=== PATIENT | male | born 1955 ===

== ENCOUNTER 2018-02-19 14:31 | Inpatient (IN) | payer OTHER ==
--- NOTE | 2018-02-19 15:52 | ED PDOC ---
HPI: General Adult Time Seen by Provider: 02/19/18 15:12 Chief Complaint (Nursing): Dizziness/Lightheaded Chief Complaint (Provider): Dizziness History Per: Patient History/Exam Limitations: no limitations Onset/Duration Of Symptoms: Hrs (x1) Current Symptoms Are (Timing): Still Present Additional Complaint(s): Davis Lee is a 62 year old male with a past medical history of diabetes, who is presenting to the ER with complains of vertiginous dizziness with associated nausea and mild headaches, onset one hour ago. Patient reports that dizziness is worsened when moving his head and bending over, and states he has had episodes of "feeling hot." Patient reports experiencing a similar episodes 2 days ago, that resolved spontaneously. He does not have a regular doctor, and his medications are not always taken accordingly. He denies any vomiting, focal weakness, blurry vision, numbness , or weakness. Patient offers no other medical complaints at this time. PMD: none provided Past Medical History Reviewed: Historical Data, Nursing Documentation, Vital Signs Vital Signs: Last Vital Signs Temp 97.7 F 02/19/18 14:55 Pulse 66 02/19/18 14:55 Resp 18 02/19/18 14:55 BP 134/79 02/19/18 14:55 Pulse Ox 99 02/19/18 16:06 - Medical History PMH: Diabetes - Surgical History Other surgeries: left hand surgery, ankle surgery - due to trauma - Family History Family History: States: Diabetes, Hypertension - Social History Current smoker - smoking cessation education provided: Yes Alcohol: None Drugs: Denies - Allergies Allergies/Adverse Reactions: Allergies Allergy/AdvReac Type Severity Reaction Status Date / Time No Known Allergies Allergy Verified 02/19/18 15:20 Review of Systems ROS Statement: Except As Marked, All Systems Reviewed And Found Negative Constitutional: Negative for: Weakness Eyes: Negative for: Vision Change ((-) blurry vision) Gastrointestinal: Positive for: Nausea. Negative for: Vomiting Neurological: Positive for: Headache (mild), Dizziness (vertiginous). Negative for: Weakness (focal), Numbness, Other Physical Exam - Reviewed Nursing Documentation Reviewed: Yes Vital Signs Reviewed: Yes - Physical Exam Appears: Positive for: Non-toxic, No Acute Distress Neurologic/Psych: Positive for: Alert, game room attendant II-XII (intact), Oriented (x3), Cerebellar Tests (normal), Gait (steady), Other ((-) slurred speech, (+) grazyna- hallpike manuver- induces subtle nystagmus ). Negative for: Motor/Sensory Deficits - Laboratory Results Result Diagrams: 02/19/18 16:01 02/19/18 16:01 - ECG O2 Sat by Pulse Oximetry: 99 (RA) Pulse Ox Interpretation: Normal Medical Decision Making Medical Decision Making: Time: 15:33 Imprssion: Vertiginous Dizziness Differentials (including but not limited to): BPPV, dehydration, electrolyte abnormalities, intercranial mass, VBI. stroke Initial Plan: --CT Head --EKG --Alcohol Serum --CMP --Lipase --Magnesium --Phosphorus --ED Urine Dipstick --CBC --Glucose, POC --Antivert 50 mg PO --Zofran Inj 4 mg IVP --Zofran ODT 4 mg PO Accession No. : [id number] Patient Name / ID : MELLISSA POOL / [id number] Exam Date : 02/19/2018 15:53:02 ( Approved ) Study Comment : Sex / Age : M / [id number] Creator : Jonah Aiken MD Dictator : Jonah Aiken MD Testing Director : Hot Header Operator : Jonah Aiken MD Approver2 : Report Date : 02/19/2018 16:17:18 My Comment : PROCEDURE: CT HEAD WITHOUT CONTRAST. HISTORY: vertiginous dizziness and headache COMPARISON: None available. TECHNIQUE: Axial computed tomography images were obtained through the head/brain without intravenous contrast. Radiation dose: Total exam DLP = 951.31 mGy-cm. This CT exam was performed using one or more of the following dose reduction techniques: Automated exposure control, adjustment of the mA and/or kV according to patient size, and/or use of iterative reconstruction technique. FINDINGS: HEMORRHAGE: No intracranial hemorrhage. BRAIN: A small chronic lacune is seen the right external capsule anteriorly with remaining white matter are grossly normal in intrinsic signal throughout. Good corticomedullary differentiation is appreciated in the midline brain and appears unremarkable. There is no suspicious extra-axial fluid collection identified. Posterior fossa contents appear unremarkable the brainstem. VENTRICLES: Unremarkable. No hydrocephalus. CALVARIUM: Unremarkable. PARANASAL SINUSES: Unremarkable as visualized. No significant inflammatory changes. MASTOID AIR CELLS: Unremarkable as visualized. No inflammatory changes. OTHER FINDINGS: None. IMPRESSION: Likely chronic lacune right external capsule anteriorly. No intracranial hemorrhage or mass-effect. Follow-up CT or MRI are available as clinically warranted. Scribe Attestation: Documented by Keesha Weston acting as a scribe for Marva Conley MD. Scribe Attestation: All medical record entries made by the Scribe were at my direction and personally dictated by me. I have reviewed the chart and agree that the record accurately reflects my personal performance of the history, physical exam, medical decision making, and the department course for this patient. I have also personally directed, reviewed, and agree with the discharge instructions and disposition. Disposition - Disposition Forms: [employer] (Bengali)
[2018-02-19 16:18] LABS: BASO # 0.1 K/uL (0.0-0.2); BASO % 0.6 % (0.0-2.0); EOS # 0.1 K/uL (0.0-0.7); EOS % 1.4 % (0.0-4.0); HEMOGLOBIN 13.7 g/dL (12.0-18.0); LYMPH # 2.8 K/uL (1.0-4.3); LYMPH % 28.1 % (20.0-40.0); MEAN CELL VOLUME 89.1 fl (80.0-94.0); MEAN CORPUSCULAR HEMOGLOBIN 29.6 pg (27.0-31.0); MEAN CORPUSCULAR HGB CONC 33.2 g/dL (33.0-37.0); MEAN PLATELET VOLUME 9.2 fl (7.2-11.7); MONO # 0.7 K/uL (0.0-0.8); MONO % 7.5 % (0.0-10.0); NEUT # 6.2 K/uL (1.8-7.0); NEUT % 62.4 % (50.0-75.0); NRBC % 0.2 % (0.0-0.0); RBC 4.61 Mil/uL (4.40-5.90); RED CELL DISTRIBUTION WIDTH 14.2 % (11.5-14.5); WHITE BLOOD COUNT 9.9 K/uL (4.8-10.8)
--- NOTE | 2018-02-19 16:19 | CT ---
PROCEDURE: CT HEAD WITHOUT CONTRAST. HISTORY: vertiginous dizziness and headache COMPARISON: None available. TECHNIQUE: Axial computed tomography images were obtained through the head/brain without intravenous contrast. Radiation dose: Total exam DLP = 951.31 mGy-cm. This CT exam was performed using one or more of the following dose reduction techniques: Automated exposure control, adjustment of the mA and/or kV according to patient size, and/or use of iterative reconstruction technique. FINDINGS: HEMORRHAGE: No intracranial hemorrhage. BRAIN: A small chronic lacune is seen the right external capsule anteriorly with remaining white matter are grossly normal in intrinsic signal throughout. Good corticomedullary differentiation is appreciated in the midline brain and appears unremarkable. There is no suspicious extra-axial fluid collection identified. Posterior fossa contents appear unremarkable the brainstem. VENTRICLES: Unremarkable. No hydrocephalus. CALVARIUM: Unremarkable. PARANASAL SINUSES: Unremarkable as visualized. No significant inflammatory changes. MASTOID AIR CELLS: Unremarkable as visualized. No inflammatory changes. OTHER FINDINGS: None. IMPRESSION: Likely chronic lacune right external capsule anteriorly. No intracranial hemorrhage or mass-effect. Follow-up CT or MRI are available as clinically warranted.
[2018-02-19 16:22] LABS: ALB/GLOB RATIO 1.1 (1.0-2.1); ALBUMIN 4.1 g/dL (3.5-5.0); ALT/SGPT 38 U/L (21-72); AST/SGOT 20 U/L (17-59); BLOOD UREA NITROGEN 21 mg/dl (9-20); CALCIUM 10.5 mg/dL (8.4-10.2); GFR AFRICAN-AMERICAN > 60; GFR NON-AFRICAN AMERICAN > 60; LIPASE 77 U/L (23-300)
[2018-02-19] MEDS ORDERED: Iodixanol 320 MG/ML 100 ML BOTTLE IV ONE (18:42)
[2018-02-19] MEDS ORDERED: Sodium Chloride 0.9% 100 ML ONE (18:42)
--- NOTE | 2018-02-19 19:22 | CP.PCM.HP ---
History of Present Illness - History of Present Illness History of Present Illness: 62 year old male presented to ED with complaints of dizziness and unsteady gait for past 2 days. Started with dizziness, then progressed to blurry vision. Unusual sensation of his right cheek- felt like someone was touching his face. This morning began with headache, severe, bitemporal with associated severe nausea without vomiting. Of note he also reports unsteady gait for past two days , no falls. No history of similar symptoms in the past. His symptoms are slightly improved after Zofran and Meclizine. He does not have PMD. His nephew is a doctor in [place], last blood work done there was in August 2017, only takes Metformin 750mg once a day. PMD: none PMH: NIDDM Medications: Metformin 750mg daily Allergies: NKDA Surgical Hx: left hand, right ankle Social Hx: Smoker: 3-4 cigarrettes /day, social etoh use-rare, no illicit drug use. Family Hx: Mother has DM, sister has DM, Father is -had DM Present on Admission - Present on Admission Any Indicators Present on Admission: No Review of Systems - Constitutional Constitutional: Headache (began today, bilateral, temporal). absent: Fever, Frequent Falls, Weight Loss, Weakness - EENT Eyes: Blurred Vision (last night), Requires Corrective Lenses. absent: Pain, Sees Flashes, Spots in Vision Ears: Decreased Hearing (right more than left), Disequilibrium, Dizziness. absent: Ear Discharge, Tinnitus Nose/Mouth/Throat: absent: Epistaxis, Nasal Congestion, Nasal Discharge, Mouth Pain, Sore Throat - Cardiovascular Cardiovascular: absent: Chest Pain, Chest Pain at Rest, Dyspnea, Leg Edema, Slow Heart Rate, Syncope - Respiratory Respiratory: Cough (a few days ago, now resolved). absent: Dyspnea, Wheezing, Chest Congestion, Excessive Mucous Production - Gastrointestinal Gastrointestinal: absent: Abdominal Pain, Bloating, Change in Bowel Habits, Dyspepsia, Heartburn, Nausea, Vomiting - Genitourinary Genitourinary: absent: Change in Urinary Stream, Dysuria, Nocturia, Urinary Urgency, Voiding Freq/Small Amts - Musculoskeletal Musculoskeletal: absent: Back Pain, Muscle Weakness, Myalgias - Integumentary Integumentary: absent: Unusual Bruising - Neurological Neurological: Disequilibrium, Dizziness Additional comments: 'sensation of right of face, on cheek like someone was touching his face - Endocrine Endocrine: Polydipsia. absent: Polyphagia, Polyuria - Hematologic/Lymphatic Hematologic: absent: Easy Bleeding, Easy Bruising Past Patient History - Past Medical History & Family History Past Medical History?: Yes Pertinent Family History: Mother: DM Father :DM, Sister: DM - Past Social History Smoking Status: Light Smoker < 10 Cigarettes Daily Occupation: works in maintenance Alcohol: None Drugs: Denies Home Situation {Lives}: Alone - ENDOCRINE/METABOLIC Hx Diabetes Mellitus Type 2: Yes - PSYCHIATRIC Hx Substance Use: No - SURGICAL HISTORY Hx Surgeries: Yes (left hand, right ankle) Meds Allergies/Adverse Reactions: Allergies Allergy/AdvReac Type Severity Reaction Status Date / Time No Known Allergies Allergy Verified 02/19/18 15:20 Physical Exam - Constitutional Appears: Non-toxic, No Acute Distress - Head Exam Head Exam: ATRAUMATIC, NORMAL INSPECTION, NORMOCEPHALIC - Eye Exam Eye Exam: EOMI, Normal appearance, PERRL Additional comments: small xanthomas bilaterally upper/lower eyelids - ENT Exam ENT Exam: Mucous Membranes Moist Results - Vital Signs Recent Vital Signs: Last Vital Signs Temp 97.7 F 02/19/18 14:55 Pulse 66 02/19/18 14:55 Resp 18 02/19/18 14:55 BP 134/79 02/19/18 14:55 Pulse Ox 99 02/19/18 16:41 - Labs Result Diagrams: 02/19/18 16:01 02/19/18 16:01 Labs: Laboratory Results - last 24 hr 02/19/18 02/19/18 02/19/18 15:24 16:01 16:01 WBC 9.9 RBC 4.61 Hgb 13.7 Hct 41.1 MCV 89.1 MCH 29.6 MCHC 33.2 RDW 14.2 Plt Count 219 MPV 9.2 Neut % (Auto) 62.4 Lymph % (Auto) 28.1 [place] % (Auto) 7.5 Eos % (Auto) 1.4 Baso % (Auto) 0.6 Neut # (Auto) 6.2 Lymph # (Auto) 2.8 [place] # (Auto) 0.7 Eos # (Auto) 0.1 Baso # (Auto) 0.1 Sodium 138 Potassium 4.3 Chloride 102 Carbon Dioxide 24 Anion Gap 16 BUN 21 H Creatinine 0.8 Est GFR ( Amer) > 60 Est GFR (Non-Af Amer) > 60 POC Glucose (mg/dL) 145 H Random Glucose 150 H Calcium 10.5 H Phosphorus 2.9 Magnesium 2.2 Total Bilirubin 0.5 AST 20 ALT 38 Alkaline Phosphatase 131 H Total Protein 7.7 Albumin 4.1 Globulin 3.6 Albumin/Globulin Ratio 1.1 Lipase 77 Alcohol, Quantitative < 10 - EKG Data EKG Interpreted by: Myself EKG shows normal: Sinus rhythm Rate: Normal - Imaging and Cardiology CT scan - head Status: Image reviewed by me, Report reviewed by me Additional comment: FINDINGS: HEMORRHAGE: No intracranial hemorrhage. BRAIN: A small chronic lacune is seen the right external capsule anteriorly with remaining white matter are grossly normal in intrinsic signal throughout. Good corticomedullary differentiation is appreciated in the midline brain and appears unremarkable. There is no suspicious extra-axial fluid collection identified. Posterior fossa contents appear unremarkable the brainstem. VENTRICLES: Unremarkable. No hydrocephalus. CALVARIUM: Unremarkable. PARANASAL SINUSES: Unremarkable as visualized. No significant inflammatory changes. MASTOID AIR CELLS: Unremarkable as visualized. No inflammatory changes. OTHER FINDINGS: None. IMPRESSION: Likely chronic lacune right external capsule anteriorly. No intracranial hemorrhage or mass-effect. Follow-up CT or MRI are available as clinically warranted. Assessment & Plan (1) Dizziness Assessment and Plan: 62 year old male with history of NIDDM admittes for dizziness, headache, unsteady gait of unknown etiology. Patient has been normotensive, accuchecks have been within acceptable limits, he does not appear to have any focal neurologic deficits at this time. However need to rule out stroke, TIA, vertibrobasilar insufficiency CT head revealed Likely chronic lacune right external capsule anteriorly. No intracranial hemorrhage or mass-effect. Neurology was consulted, CTA of head and neck was done, pending report. Vitamin B12, Folate, TSH, HGA1C, and lipid panel ordered for AM. Will monitor patient BP closely. Follow up neurology recommendations and pending CTA report Status: Acute (2) Non-insulin dependent type 2 diabetes mellitus Assessment and Plan: hga1c for AM, UA to assess for proteinuria accuchecks are within acceptable limits he is for CTA of head and neck, hold off on starting metformin for now. Status: Chronic (3) DVT prophylaxis Assessment and Plan: lovenox in AM Status: Acute
[2018-02-19 21:21] LABS: SQUAMOUS EPITHIAL < 1 /hpf (0-5); URINE BILIRUBIN NEGATIVE (NEGATIVE); URINE BLOOD NEGATIVE (NEGATIVE); URINE CLARITY CLEAR (Clear); URINE COLOR STRAW (YELLOW); URINE GLUCOSE (UA) NEG (Normal); URINE LEUKOCYTE ESTERASE NEG Leu/uL (Negative); URINE PROTEIN NEGATIVE (NEGATIVE); URINE UROBILINOGEN 0.2-1.0 mg/dL (0.2-1.0)
--- NOTE | 2018-02-19 21:34 | CT ---
EXAM: CT Angiography Head With Intravenous Contrast CT Angiography Neck With Intravenous Contrast EXAM DATE/TIME: 02/19/2018 6:20 PM CLINICAL HISTORY: 62 years old, male; Signs and symptoms; Vertigo and other: Dizziness; Additional info: Vertigo R/O vertebral basilar artery insufficiency TECHNIQUE: Axial computed tomographic angiography images of the head and neck with intravenous contrast using CT angiography protocol. All CT scans at this facility use one or more dose reduction techniques, viz.: automated exposure control; ma/kV adjustment per patient size (including targeted exams where dose is matched to indication; i.e. head); or iterative reconstruction technique. All CT scans at this facility use one or more dose reduction techniques, viz.: automated exposure control; ma/kV adjustment per patient size (including targeted exams where dose is matched to indication; i.e. head); or iterative reconstruction technique. MIP reconstructed images were created and reviewed. Coronal and sagittal reformatted images were created and reviewed. CONTRAST: 90 mL of [id number] administered intravenously. COMPARISON: Recent head CT, 2018-02-19 15:53 FINDINGS: LIMITATIONS: Mild streak/motion artifact. 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 No evidence of occlusion. RIGHT MIDDLE CEREBRAL ARTERY: No evidence of occlusion. No aneurysm visualized. RIGHT POSTERIOR CEREBRAL ARTERY: origin of the right posterior cerebral artery, a congenital variant. No evidence of occlusion. LEFT ANTERIOR CEREBRAL ARTERY: No evidence of occlusion. No aneurysm visualized. LEFT MIDDLE CEREBRAL ARTERY: No evidence of occlusion. No aneurysm visualized. LEFT POSTERIOR CEREBRAL ARTERY: No evidence of occlusion. No aneurysm visualized. BASILAR ARTERY: No evidence of occlusion or significant stenosis. No aneurysm visualized. NECK: RIGHT COMMON CAROTID ARTERY: No evidence of occlusion or significant stenosis. No evidence of dissection. RIGHT INTERNAL CAROTID ARTERY:Findings suspicious for a small aneurysm arising from the supraclinoid portion of the right internal carotid artery, image 102/series 606, projecting anteriorly, and measuring 3 mm. No evidence of aneurysm rupture. No evidence of occlusion. No evidence of aortic dissection. Negative. RIGHT EXTERNAL CAROTID ARTERY: No evidence of occlusion. 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 It is not seen to enhance distally, above the level of C1. No acute dissection is visualized. LEFT COMMON CAROTID ARTERY: No evidence of occlusion or significant stenosis. No evidence of dissection. LEFT INTERNAL CAROTID ARTERY: No evidence of occlusion. No aneurysm visualized. LEFT EXTERNAL CAROTID ARTERY: No evidence of occlusion. LEFT VERTEBRAL ARTERY: No evidence of occlusion or significant stenosis. No evidence of dissection. HEAD and NECK: BONES/JOINTS: No acute bony abnormality identified. SOFT TISSUES: No acute abnormality of the visualized soft tissues seen. CAROTID STENOSIS REFERENCE USING NASCET CRITERIA: % ICA stenosis = (1 - narrowest ICA diameter/diameter of distal cervical ICA) x 100. Mild - <50% stenosis. Moderate - 50-69% stenosis. Severe - 70-94% stenosis. Near occlusion - 95-99% stenosis. Occluded - 100% stenosis. IMPRESSION: - Right vertebral artery is diffusely tiny in size, most compatible with congenital hypoplasia. It is not seen to enhance distally, above the level of C1, most likely due to congenital aplasia, although occlusion is not entirely excluded. Recommend clinical correlation. 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 No evidence of aneurysm rupture. - See above for remaining findings.
--- NOTE | 2018-02-19 23:30 | CP.PCM.CON ---
History of Present Illness - History of Present Illness History of Present Illness: Mr. Lee is a 62-year-old man with a past medical history of DM, who states that yesterday he developed dizziness, nausea, vomiting and headache. He feels that he has a sensation of spinning. Meclizine did not help. CT scan of the head showed an external capsule lacunar infarct. CTA of the head/neck was consistent with vertebro-basilar insufficiency with stenosis and possible occlusion. The patient was clinically stable when I saw him an said he was feeling better with Valium 2 mg. Review of Systems - Review of Systems All systems: reviewed and no additional remarkable complaints except Past Patient History - Past Medical History & Family History Past Medical History?: Yes - Past Social History Smoking Status: Light Smoker < 10 Cigarettes Daily Occupation: works in maintenance Alcohol: None Drugs: Denies Home Situation {Lives}: Alone - ENDOCRINE/METABOLIC Hx Diabetes Mellitus Type 2: Yes - PSYCHIATRIC Hx Substance Use: No - SURGICAL HISTORY Hx Surgeries: Yes (left hand, right ankle) Meds Allergies/Adverse Reactions: Allergies Allergy/AdvReac Type Severity Reaction Status Date / Time No Known Allergies Allergy Verified 02/19/18 15:20 - Medications Medications: Current Medications Enoxaparin Sodium (Lovenox) 40 mg SC DAILY ROSELIA PRN Reason: Protocol Physical Exam - Neurological Exam Neurological exam: Alert, CN II-XII Intact, Normal Gait, Oriented x3, Reflexes Normal Additional comments: No focal motor or sensory neurological deficits. Nystagmus on right lateral gaze noted and on upward gaze. Results - Vital Signs Recent Vital Signs: Last Vital Signs Temp 98.6 F 02/19/18 21:35 Pulse 68 02/19/18 21:35 Resp 12 02/19/18 21:35 BP 132/76 02/19/18 21:35 Pulse Ox 99 02/19/18 21:35 - Labs Result Diagrams: 02/19/18 16:01 02/19/18 16:01 Labs: Laboratory Results - last 24 hr 02/19/18 02/19/18 02/19/18 15:24 16:01 16:01 WBC 9.9 RBC 4.61 Hgb 13.7 Hct 41.1 MCV 89.1 MCH 29.6 MCHC 33.2 RDW 14.2 Plt Count 219 MPV 9.2 Neut % (Auto) 62.4 Lymph % (Auto) 28.1 [place] % (Auto) 7.5 Eos % (Auto) 1.4 Baso % (Auto) 0.6 Neut # (Auto) 6.2 Lymph # (Auto) 2.8 [place] # (Auto) 0.7 Eos # (Auto) 0.1 Baso # (Auto) 0.1 Sodium 138 Potassium 4.3 Chloride 102 Carbon Dioxide 24 Anion Gap 16 BUN 21 H Creatinine 0.8 Est GFR ( Amer) > 60 Est GFR (Non-Af Amer) > 60 POC Glucose (mg/dL) 145 H Random Glucose 150 H Calcium 10.5 H Phosphorus 2.9 Magnesium 2.2 Total Bilirubin 0.5 AST 20 ALT 38 Alkaline Phosphatase 131 H Total Protein 7.7 Albumin 4.1 Globulin 3.6 Albumin/Globulin Ratio 1.1 Lipase 77 Urine Color Urine Clarity Urine pH Ur Specific [place] Urine Protein Urine Glucose (UA) Urine Ketones Urine Blood Urine Nitrate Urine Bilirubin Urine Urobilinogen Ur Leukocyte Esterase Urine RBC (Auto) Urine Microscopic WBC Ur Squamous Epith Cells Alcohol, Quantitative < 10 02/19/18 02/19/18 21:13 21:40 WBC RBC Hgb Hct MCV MCH MCHC RDW Plt Count MPV Neut % (Auto) Lymph % (Auto) [place] % (Auto) Eos % (Auto) Baso % (Auto) Neut # (Auto) Lymph # (Auto) [place] # (Auto) Eos # (Auto) Baso # (Auto) Sodium Potassium Chloride Carbon Dioxide Anion Gap BUN Creatinine Est GFR ( Amer) Est GFR (Non-Af Amer) POC Glucose (mg/dL) 122 H Random Glucose Calcium Phosphorus Magnesium Total Bilirubin AST ALT Alkaline Phosphatase Total Protein Albumin Globulin Albumin/Globulin Ratio Lipase Urine Color Straw Urine Clarity Clear Urine pH 6.0 Ur Specific [place] 1.055 H Urine Protein Negative Urine Glucose (UA) Neg Urine Ketones Negative Urine Blood Negative Urine Nitrate Negative Urine Bilirubin Negative Urine Urobilinogen 0.2-1.0 Ur Leukocyte Esterase Neg Urine RBC (Auto) 2 Urine Microscopic WBC < 1 Ur Squamous Epith Cells < 1 Alcohol, Quantitative Assessment & Plan (1) Vertebrobasilar artery insufficiency Assessment and Plan: Based on the symptoms and imaging, the patient likely has vertebrobasilar disease causing nystagmus, vertigo and gait instability. His symptoms have been present for several days, but are stable now. I recommend the followin. Telemetry 2. MRI brain without contrast 3. Consult neurointerventional for angiogram 4. Will load with Plavix 300 mg along with Aspirin 81. 5. Permissive HTN (only treat BP that is higher than 220/110 mm Hg for the new 24 hours) 6. PT/OT eval and treatment, including vestibular rehab 7. DVT Px with SCD 9. Continue Valium 2 mg Q8 hrs for vertigo 10. Case management consult Thank you. Status: Acute Priority: High
--- NOTE | 2018-02-20 06:49 | CP.PCM.PN ---
Subjective - Date & Time of Evaluation Date of Evaluation: 02/20/18 Time of Evaluation: 07:30 - Subjective Subjective: Pt seen and evaluated at bedside this am; no acute events overnight since admission. States his vertigo is better and he was able to ambulate to bathroom. No chest pain, no shortness of breath, no abdominal pain/discomfort, no pain in legs. Objective - Vital Signs/Intake and Output Vital Signs (last 24 hours): Temp Pulse Resp BP Pulse Ox 98.1 F 69 18 108/64 97 02/20/18 04:51 02/20/18 04:51 02/20/18 04:51 02/20/18 04:51 02/20/18 04:51 - Medications Medications: Current Medications Aspirin (Ecotrin) 81 mg PO DAILY ROSELIA - Labs Labs: 02/19/18 16:01 02/19/18 16:01 - Constitutional Appears: Non-toxic, No Acute Distress - ENT Exam ENT Exam: Mucous Membranes Moist - Respiratory Exam Respiratory Exam: Clear to Ausculation Bilateral, NORMAL BREATHING PATTERN. absent: Wheezes, Respiratory Distress - Cardiovascular Exam Cardiovascular Exam: REGULAR RHYTHM, +S1, +S2 - GI/Abdominal Exam GI & Abdominal Exam: Soft, Normal Bowel Sounds - Extremities Exam Extremities Exam: Normal Capillary Refill, Normal Inspection. absent: Calf Tenderness, Pedal Edema - Back Exam Back Exam: NORMAL INSPECTION - Neurological Exam Neurological Exam: Alert, Awake Assessment and Plan - Assessment and Plan (Free Text) Assessment: 62 year old male with history of NIDDM admitted for dizziness, unsteady gait, likely vertebrobasilar artery insufficiency. Plan: # Vertebrobasilar Artery Insufficiency CT head revealed likely chronic lacune right external capsule anteriorly. No intracranial hemorrhage or mass-effect. Neuro consult Dr. Amaro, recs appreciated - MRI brain without contrast pending - Consult neurointerventional for angiogram - Plavix 300mg, Aspirin 81 - PT/OT eval and treatment, including vestibular rehab - Continue Valium 2 mg Q8 hrs for vertigo - Atorvastatin 40 mg daily - Monitor BP - Vitamin B12 low; folate pending # Hyperlipidemia - Atorvastatin 40 mg daily # Non-insulin dependent type 2 diabetes mellitus - HbA1c pending - Accuchecks # DVT prophylaxis - SCD
[2018-02-20] MEDS ORDERED: Enoxaparin 40 mg Syringe SC SCH (09:00)
--- NOTE | 2018-02-20 10:45 | CP.PCM.PN ---
Subjective - Date & Time of Evaluation Date of Evaluation: 02/20/18 Time of Evaluation: 10:43 - Subjective Subjective: Mr. Lee was seen and examined at the bedside. He is alert, oriented . He denies any headache, blurred vision, or nausea, or vomiting. He claims of experiencing improved dizziness. He has a nystagmus noted with his eyes looking at the right side. He is able to follow all simple commands. There was no untoward events overnight. Objective - Vital Signs/Intake and Output Vital Signs (last 24 hours): Temp Pulse Resp BP Pulse Ox 97.7 F 68 20 108/68 94 L 02/20/18 08:14 02/20/18 08:14 02/20/18 08:14 02/20/18 08:14 02/20/18 08:14 - Medications Medications: Current Medications Aspirin (Ecotrin) 81 mg PO DAILY [facility] Last Admin: 02/20/18 10:18 Dose: 81 mg Atorvastatin Calcium (Lipitor) 40 mg PO HS [facility] Diazepam (Valium) 2 mg PO Q8 [facility] - Labs Labs: 02/19/18 16:01 02/19/18 16:01 - Constitutional Appears: No Acute Distress - Eye Exam Pupil Exam: PERRL Additional comments: nystagmus with his eye turning to the right side. - Neurological Exam Neurological Exam: Alert, Awake Neuro motor strength exam: Left Upper Extremity: 5, Right Upper Extremity: 5, Left Lower Extremity: 5, Right Lower Extremity: 5 Additional comments: Alert, oriente, able to follow simple commands. Sensation is intact. Assessment and Plan (1) Vertebrobasilar artery insufficiency Assessment & Plan: Case discussed with Dr. Amaro, continue all current medical regimen including PT for vestibular rehab. Pending MRI of the brain. Status: Acute
[2018-02-20 13:33] LABS: FOLATE 10.7 ng/mL
--- NOTE | 2018-02-20 19:46 | CARD ---
APPROVED REPORT EKG Measurement Heart [id number] <Conclusion> Normal sinus rhythm Normal ECG
--- NOTE | 2018-02-21 09:23 | CP.PCM.PN ---
Subjective - Date & Time of Evaluation Date of Evaluation: 02/21/18 Time of Evaluation: 07:25 - Subjective Subjective: Pt seen and evaluated at bedside; no acute events overnight but states dizziness has persisted. Objective - Vital Signs/Intake and Output Vital Signs (last 24 hours): Temp Pulse Resp BP Pulse Ox 97.9 F 66 18 115/69 97 02/21/18 07:58 02/21/18 07:58 02/21/18 07:58 02/21/18 07:58 02/21/18 07:58 - Medications Medications: Current Medications Aspirin (Ecotrin) 81 mg PO DAILY [facility] Last Admin: 02/20/18 10:18 Dose: 81 mg Atorvastatin Calcium (Lipitor) 40 mg PO HS [facility] Last Admin: 02/20/18 21:20 Dose: 40 mg Clopidogrel Bisulfate (Plavix) 75 mg PO DAILY [facility] Diazepam (Valium) 2 mg PO Q8 [facility] Last Admin: 02/21/18 00:08 Dose: 2 mg - Labs Labs: 02/19/18 16:01 02/19/18 16:01 - Constitutional Appears: Non-toxic - Eye Exam Eye Exam: EOMI - ENT Exam ENT Exam: Mucous Membranes Moist - Respiratory Exam Respiratory Exam: Clear to Ausculation Bilateral, NORMAL BREATHING PATTERN. absent: Wheezes - Cardiovascular Exam Cardiovascular Exam: REGULAR RHYTHM, +S1, +S2 - GI/Abdominal Exam GI & Abdominal Exam: Soft, Normal Bowel Sounds - Extremities Exam Extremities Exam: Normal Inspection. absent: Calf Tenderness, Pedal Edema - Neurological Exam Neurological Exam: Alert, Awake Neuro motor strength exam: Left Upper Extremity: 5, Right Upper Extremity: 5, Left Lower Extremity: 5, Right Lower Extremity: 5 - Skin Skin Exam: Dry, Normal Color, Warm Assessment and Plan - Assessment and Plan (Free Text) Assessment: 62 year old male with history of NIDDM admitted for dizziness, unsteady gait, likely vertebrobasilar artery insufficiency. Plan: # Vertebrobasilar Artery Insufficiency CT head revealed likely chronic lacune right external capsule anteriorly. No intracranial hemorrhage or mass-effect. MRI: findings possibly reflect tiny acute infarction Neuro consult Dr. Amaro, recs appreciated Neurointerventional consult pending Pt received plavix 300 mg yesterday, now on plavix 75 mg and aspirin 81 - PT/OT eval and treatment, including vestibular rehab - Continue Valium 2 mg Q8 hrs for vertigo - Atorvastatin 40 mg daily - Monitor BP - Vitamin B12 low, will start supplementation; folate wnl # Hyperlipidemia - Atorvastatin 40 mg daily # Non-insulin dependent type 2 diabetes mellitus - HbA1c 7.5 - Consider restarting metformin - Accuchecks # DVT prophylaxis - SCD
--- NOTE | 2018-02-21 09:28 | MRI ---
PROCEDURE: MRI BRAIN WITHOUT CONTRAST HISTORY: vertibrobasilar insufficiency COMPARISON: Unenhanced head CT 02/19/2018 TECHNIQUE: Multiplanar, multisequence MR images of the brain were obtained without intravenous contrast enhancement. FINDINGS: HEMORRHAGE: None DWI: No evidence of an acute or early subacute infarction. BRAIN PARENCHYMA: A chronic lacune is reiterated at the right external capsule superiorly and anteriorly. Trace chronic microangiopathy is appreciated. Corticomedullary differentiation remains good throughout the supra and infratentorial compartments with the brainstem unremarkable in appearance overall. Midline brain anatomy appears unremarkable once again and there is no mass effect. No suspicious extra-axial fluid collection identified. VENTRICLES: Unremarkable. No hydrocephalus. CRANIUM: Unremarkable. ORBITS: Grossly unremarkable. PARANASAL SINUSES/MASTOIDS: Clear VASCULAR SYSTEM: Skull base flow voids intact. 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 OTHER FINDINGS: None. IMPRESSION: No acute intracranial findings. Chronic lacune again reiterated at the right external capsule anteriorly which trace chronic microangiopathy appreciated at this time.
--- NOTE | 2018-02-21 10:49 | CP.PCM.PN ---
Subjective - Date & Time of Evaluation Date of Evaluation: 02/21/18 Time of Evaluation: 10:49 - Subjective Subjective: Mr. Lee was seen and examined at the bedside. He is alert, oriented . He denies any headache, blurred vision, diplopia, or nausea, or vomiting. He claims of experiencing improved dizziness. He is able to follow all simple commands. MRI of the brain showed no acute intracranial findings. Chronic lacune again reiterated at the right external capsule anteriorly which trace chronic microangiopathy appreciated at this time. There was no untoward events overnight. Objective - Vital Signs/Intake and Output Vital Signs (last 24 hours): Temp Pulse Resp BP Pulse Ox 97.9 F 66 18 115/69 97 02/21/18 07:58 02/21/18 07:58 02/21/18 07:58 02/21/18 07:58 02/21/18 07:58 - Medications Medications: Current Medications Aspirin (Ecotrin) 81 mg PO DAILY [facility] Last Admin: 02/21/18 10:31 Dose: 81 mg Atorvastatin Calcium (Lipitor) 40 mg PO HS [facility] Last Admin: 02/20/18 21:20 Dose: 40 mg Clopidogrel Bisulfate (Plavix) 75 mg PO DAILY [facility] Last Admin: 02/21/18 10:31 Dose: 75 mg Diazepam (Valium) 2 mg PO Q8 [facility] Last Admin: 02/21/18 00:08 Dose: 2 mg - Labs Labs: 02/19/18 16:01 02/19/18 16:01 - Constitutional Appears: No Acute Distress - Head Exam Head Exam: NORMAL INSPECTION - Neurological Exam Neurological Exam: Alert, Awake, Oriented x3 Neuro motor strength exam: Left Upper Extremity: 5, Right Upper Extremity: 5, Left Lower Extremity: 5, Right Lower Extremity: 5 Additional comments: Neurological improved from previous examination. Assessment and Plan (1) Vertebrobasilar artery insufficiency Assessment & Plan: Case discussed with Dr. Amaro, continue all current medical, physical, and occupational therapies. May discharge to home pending PT recommendations. Recommend to follow up with Dr. Amaro 2 weeks post discharge at [address] [place] [address] [address] [facility] [id number]. Status: Acute
[2018-02-21] MEDS ORDERED: CYANOCOBALAMIN (VITAMIN B-12) 250 MCG TABLET PO SCH (12:45)
--- NOTE | 2018-02-22 06:58 | CP.PCM.PN ---
Subjective - Date & Time of Evaluation Date of Evaluation: 02/22/18 Time of Evaluation: 07:25 - Subjective Subjective: Pt seen and evaluated at bedside; states dizziness comes and goes. Complained of constipation, otherwise no events overnight. Objective - Vital Signs/Intake and Output Vital Signs (last 24 hours): Temp Pulse Resp BP Pulse Ox 98.0 F 69 18 100/61 100 02/22/18 05:23 02/22/18 05:23 02/22/18 05:23 02/22/18 05:23 02/22/18 05:23 - Medications Medications: Current Medications Aspirin (Ecotrin) 81 mg PO DAILY [facility] Last Admin: 02/21/18 10:31 Dose: 81 mg Atorvastatin Calcium (Lipitor) 40 mg PO HS [facility] Last Admin: 02/21/18 21:44 Dose: 40 mg Clopidogrel Bisulfate (Plavix) 75 mg PO DAILY [facility] Last Admin: 02/21/18 10:31 Dose: 75 mg Cyanocobalamin (Vitamin B12 1000 Mcg Tab) 1,000 mcg PO DAILY [facility] Diazepam (Valium) 2 mg PO Q8 [facility] Last Admin: 02/22/18 01:02 Dose: 2 mg - Labs Labs: 02/19/18 16:01 02/19/18 16:01 - Constitutional Appears: Non-toxic - Head Exam Head Exam: NORMAL INSPECTION - Eye Exam Eye Exam: Normal appearance - ENT Exam ENT Exam: Mucous Membranes Moist - Respiratory Exam Respiratory Exam: Clear to Ausculation Bilateral, NORMAL BREATHING PATTERN. absent: Wheezes - Cardiovascular Exam Cardiovascular Exam: RRR, +S1, +S2 - GI/Abdominal Exam GI & Abdominal Exam: Soft. absent: Tenderness - Extremities Exam Extremities Exam: Normal Inspection. absent: Calf Tenderness - Back Exam Back Exam: NORMAL INSPECTION - Neurological Exam Neurological Exam: Alert, Awake, Oriented x3 - Psychiatric Exam Psychiatric exam: Normal Mood - Skin Skin Exam: Dry, Warm Assessment and Plan - Assessment and Plan (Free Text) Assessment: 62 year old male with history of NIDDM admitted for dizziness, unsteady gait, likely vertebrobasilar artery insufficiency. Plan: # Vertebrobasilar Artery Insufficiency CT head revealed likely chronic lacune right external capsule anteriorly. No intracranial hemorrhage or mass-effect. MRI: findings possibly reflect tiny acute infarction Neuro consult Dr. Amaro, recs appreciated Neurointerventional consult - as per Dr. Korya pt is to get angiogram at [facility] on Sunday - 75 mg and aspirin 81 mg - PT/OT eval and treatment, including vestibular rehab; pt to get vestibular rehab as outpt - Continue Valium 2 mg Q8 hrs for vertigo - Atorvastatin 40 mg daily - Monitor BP # Non-insulin dependent type 2 diabetes mellitus Home dose metformin 750 mg; pt states he has taken on daily basis for several years. Diabetes suboptimally controlled: HbA1c 7.5. - start 1,000 mg metformin BID - Accuchecks - Insulin coverage scale and hypoglycemia protocol # Constipation - Miralax # Hyperlipidemia - Atorvastatin 40 mg daily # DVT prophylaxis -OK to start lovenox as per neuro
--- NOTE | 2018-02-22 09:20 | CP.PCM.PN ---
Subjective - Date & Time of Evaluation Date of Evaluation: 02/22/18 Time of Evaluation: 09:20 - Subjective Subjective: Mr. Lee was seen and examined at the bedside. He is alert, oriented . He denies any headache, blurred vision, diplopia, dizziness, nausea, or vomiting. He claims of experiencing improved dizziness. He is able to follow all simple commands. He further claims of ambulating with steady gait. With the result of CTA, neurointerventionalist was consulted and patient was informed the need for an angiogram. He agreed for the possible procedure. There was no untoward events overnight. Objective - Vital Signs/Intake and Output Vital Signs (last 24 hours): Temp Pulse Resp BP Pulse Ox 97.5 F L 72 20 112/69 94 L 02/22/18 08:00 02/22/18 08:00 02/22/18 08:00 02/22/18 08:00 02/22/18 08:00 - Medications Medications: Current Medications Aspirin (Ecotrin) 81 mg PO DAILY [facility] Last Admin: 02/21/18 10:31 Dose: 81 mg Atorvastatin Calcium (Lipitor) 40 mg PO HS [facility] Last Admin: 02/21/18 21:44 Dose: 40 mg Clopidogrel Bisulfate (Plavix) 75 mg PO DAILY [facility] Last Admin: 02/21/18 10:31 Dose: 75 mg Cyanocobalamin (Vitamin B12 1000 Mcg Tab) 1,000 mcg PO DAILY [facility] Diazepam (Valium) 2 mg PO Q8 [facility] Last Admin: 02/22/18 01:02 Dose: 2 mg Metformin HCl (Glucophage) 1,000 mg PO BIDWM [facility] Polyethylene Glycol (Miralax) 17 gm PO DAILY [facility] - Labs Labs: 02/19/18 16:01 02/19/18 16:01 - Constitutional Appears: No Acute Distress - Head Exam Head Exam: NORMAL INSPECTION - Neurological Exam Neurological Exam: Alert, Awake, Oriented x3 Neuro motor strength exam: Left Upper Extremity: 5, Right Upper Extremity: 5, Left Lower Extremity: 5, Right Lower Extremity: 5 Additional comments: Neurological unchanged from previous examination. Assessment and Plan (1) Vertebrobasilar artery insufficiency Assessment & Plan: Case discussed with Dr. Amaro, continue all current medical, physical, and occupational therapies. The neurointerventionalist recommend for cerebral angiogram with tentative date on Sunday at [facility], cardiac catheterization department with no official time. The patient is willing to stay in the hospital until the procedure day. Status: Acute
[2018-02-22] MEDS ORDERED: Enoxaparin 40 mg Syringe SC ONE (09:55)
[2018-02-22] MEDS: POLYETHYLENE GLYCOL 3350 17 GM/Dose PACKET PO SCH ×2 (13:17→13:26)
[2018-02-22] MEDS ORDERED: Glucagon Recombinant 1 mg Inj IM PRN (16:35)
[2018-02-22] MEDS ORDERED: Dextrose 50% SYRINGE Inj (50 ml) IV PRN (16:35)
[2018-02-22] MEDS: Insulin Lispro (humaLOG) 100 Units/ml Inj SC SCH (22:21)
[2018-02-23] MEDS: Insulin Lispro (humaLOG) 100 Units/ml Inj SC SCH ×4 (06:41→21:48)
--- NOTE | 2018-02-23 08:59 | CP.PCM.PN ---
Subjective - Date & Time of Evaluation Date of Evaluation: 02/23/18 Time of Evaluation: 08:05 - Subjective Subjective: Pt seen and evaluated at bedside; no acute events overnight. States dizziness has improved. Pt had questions about metformin dose; questions answered.He is aware he is to have a procedure on Sunday at [facility]. Objective - Vital Signs/Intake and Output Vital Signs (last 24 hours): Temp Pulse Resp BP Pulse Ox 97.8 F 65 20 123/73 97 02/23/18 08:28 02/23/18 08:28 02/23/18 08:28 02/23/18 08:28 02/23/18 08:28 - Medications Medications: Current Medications Aspirin (Ecotrin) 81 mg PO DAILY [facility] Last Admin: 02/22/18 13:17 Dose: 81 mg Atorvastatin Calcium (Lipitor) 40 mg PO HS [facility] Last Admin: 02/22/18 22:21 Dose: 40 mg Clopidogrel Bisulfate (Plavix) 75 mg PO DAILY [facility] Last Admin: 02/22/18 13:17 Dose: 75 mg Cyanocobalamin (Vitamin B12 1000 Mcg Tab) 1,000 mcg PO DAILY [facility] Last Admin: 02/22/18 13:17 Dose: 1,000 mcg Dextrose (Dextrose 50% Inj) 0 ml IV STAT PRN; Protocol PRN Reason: Hypoglycemia Protocol Dextrose (Glutose 15) 0 gm PO ONCE PRN; Protocol PRN Reason: Hypoglycemia Protocol Diazepam (Valium) 2 mg PO Q8 [facility] Last Admin: 02/23/18 01:58 Dose: Not Given Enoxaparin Sodium (Lovenox) 40 mg SC DAILY [facility] PRN Reason: Protocol Glucagon (Glucagen Diagnostic Kit) 0 mg IM STAT PRN; Protocol PRN Reason: Hypoglycemia Protocol Insulin Human Lispro (Humalog) 0 units SC [facility] REPLACED BY [facility] PRN Reason: Protocol Last Admin: 02/23/18 06:41 Dose: Not Given Metformin HCl (Glucophage) 1,000 mg PO BIDWM REPLACED BY [facility] Last Admin: 02/22/18 13:17 Dose: 1,000 mg Polyethylene Glycol (Miralax) 17 gm PO DAILY [facility] Last Admin: 02/22/18 13:26 Dose: 17 gm Senna/Docusate Sodium (Senokot S 50 Mg-8.6 Mg) 1 tab PO HS [facility] - Labs Labs: 02/19/18 16:01 02/19/18 16:01 - Constitutional Appears: Non-toxic, No Acute Distress - Head Exam Head Exam: NORMAL INSPECTION - Eye Exam Eye Exam: Normal appearance - ENT Exam ENT Exam: Mucous Membranes Moist - Respiratory Exam Respiratory Exam: Clear to Ausculation Bilateral, NORMAL BREATHING PATTERN - Cardiovascular Exam Cardiovascular Exam: REGULAR RHYTHM, +S1, +S2 - GI/Abdominal Exam GI & Abdominal Exam: Soft, Normal Bowel Sounds. absent: Tenderness - Extremities Exam Extremities Exam: Normal Inspection. absent: Calf Tenderness, Pedal Edema - Neurological Exam Neurological Exam: Alert, Awake, Oriented x3 Assessment and Plan - Assessment and Plan (Free Text) Assessment: 62 year old male with history of NIDDM admitted for dizziness, unsteady gait, likely vertebrobasilar artery insufficiency. Plan: # Vertebrobasilar Artery Insufficiency CT head revealed likely chronic lacunar right external capsule anteriorly. No intracranial hemorrhage or mass-effect. MRI: findings possibly reflect tiny acute infarction Neuro consult Dr. Amaro, recs appreciated Neurointerventional consult - as per Dr. Amaro pt is to get angiogram at [facility] on Sunday 02/25 - 75 mg and aspirin 81 mg - PT/OT eval and treatment, including vestibular rehab; pt to get vestibular rehab as outpt - Valium 2 mg Q8 hrs for vertigo if needed - Atorvastatin 40 mg daily - Monitor BP # Non-insulin dependent type 2 diabetes mellitus Home dose metformin 750 mg; pt states he has taken on daily basis for several years. Diabetes suboptimally controlled: HbA1c 7.5. - 1,000 mg metformin BID - hold in anticipation of angiogram - Accuchecks - Insulin coverage scale and hypoglycemia protocol # Constipation - Miralax - Sennokot # Hyperlipidemia - Atorvastatin 40 mg daily # DVT prophylaxis - Lovenox
[2018-02-23] MEDS: POLYETHYLENE GLYCOL 3350 17 GM/Dose PACKET PO SCH (09:12)
[2018-02-23 11:03] LABS: HEMOGLOBIN 14.4 g/dL (12.0-18.0); MEAN CELL VOLUME 88.4 fl (80.0-94.0); MEAN CORPUSCULAR HEMOGLOBIN 29.5 pg (27.0-31.0); MEAN CORPUSCULAR HGB CONC 33.4 g/dL (33.0-37.0); RBC 4.88 Mil/uL (4.40-5.90); RED CELL DISTRIBUTION WIDTH 14.2 % (11.5-14.5); WHITE BLOOD COUNT 9.1 K/uL (4.8-10.8)
[2018-02-23 11:11] LABS: ALB/GLOB RATIO 1.1 (1.0-2.1); ALT/SGPT 34 U/L (21-72); AST/SGOT 32 U/L (17-59); BLOOD UREA NITROGEN 26 mg/dl (9-20); GFR AFRICAN-AMERICAN > 60; GFR NON-AFRICAN AMERICAN > 60
[2018-02-23] MEDS ORDERED: Enoxaparin 40 mg Syringe SC SCH (11:45)
[2018-02-23] MEDS: Docusate-Senna 50 mg-8.6 mg Tab PO SCH (21:23)
[2018-02-24] MEDS: Insulin Lispro (humaLOG) 100 Units/ml Inj SC SCH ×4 (06:50→22:03)
--- NOTE | 2018-02-24 07:13 | CP.PCM.PN ---
Subjective - Date & Time of Evaluation Date of Evaluation: 02/24/18 Time of Evaluation: 07:13 - Subjective Subjective: Mr. Lee was seen and examined at the bedside. He is alert, oriented . He denies any headache, blurred vision, diplopia, dizziness, nausea, or vomiting. He He is able to follow all simple commands. He further claims of ambulating with steady gait. Patient is aware of his procedure schedule mouna. time is unknown.There was no untoward events overnight. Objective - Vital Signs/Intake and Output Vital Signs (last 24 hours): Temp Pulse Resp BP Pulse Ox 98 F 62 16 114/71 96 02/24/18 04:57 02/24/18 04:57 02/24/18 04:57 02/24/18 04:57 02/24/18 04:57 - Medications Medications: Current Medications Aspirin (Ecotrin) 81 mg PO DAILY [facility] Last Admin: 02/23/18 09:11 Dose: 81 mg Atorvastatin Calcium (Lipitor) 40 mg PO HS [facility] Last Admin: 02/23/18 21:23 Dose: 40 mg Clopidogrel Bisulfate (Plavix) 75 mg PO DAILY [facility] Last Admin: 02/23/18 09:11 Dose: 75 mg Cyanocobalamin (Vitamin B12 1000 Mcg Tab) 1,000 mcg PO DAILY [facility] Last Admin: 02/23/18 09:11 Dose: 1,000 mcg Dextrose (Dextrose 50% Inj) 0 ml IV STAT PRN; Protocol PRN Reason: Hypoglycemia Protocol Dextrose (Glutose 15) 0 gm PO ONCE PRN; Protocol PRN Reason: Hypoglycemia Protocol Diazepam (Valium) 2 mg PO Q8 [facility] Last Admin: 02/24/18 01:50 Dose: Not Given Docusate Sodium (Colace) 100 mg PO BID [facility] Last Admin: 02/23/18 16:56 Dose: 100 mg Enoxaparin Sodium (Lovenox) 40 mg SC DAILY [facility] PRN Reason: Protocol Last Admin: 02/23/18 13:29 Dose: 40 mg Glucagon (Glucagen Diagnostic Kit) 0 mg IM STAT PRN; Protocol PRN Reason: Hypoglycemia Protocol Insulin Human Lispro (Humalog) 0 units SC [facility] PRN Reason: Protocol Last Admin: 02/24/18 06:50 Dose: 2 units Metformin HCl (Glucophage) 1,000 mg PO BIDWM [facility] Last Admin: 02/23/18 09:11 Dose: 1,000 mg Polyethylene Glycol (Miralax) 17 gm PO DAILY [facility] Last Admin: 02/23/18 09:12 Dose: 17 gm Senna/Docusate Sodium (Senokot S 50 Mg-8.6 Mg) 1 tab PO HS [facility] Last Admin: 02/23/18 21:23 Dose: 1 tab - Labs Labs: 02/23/18 09:34 02/23/18 09:34 - Constitutional Appears: No Acute Distress - Head Exam Head Exam: NORMAL INSPECTION - Neurological Exam Neurological Exam: Alert, Awake, Oriented x3 Neuro motor strength exam: Left Upper Extremity: 5, Right Upper Extremity: 5, Left Lower Extremity: 5, Right Lower Extremity: 5 Additional comments: Neurological unchanged from previous examination. Assessment and Plan (1) Vertebrobasilar artery insufficiency Assessment & Plan: Case discussed with Dr. Amaro, continue all current medical, physical, and occupational therapies. The neurointerventionalist recommend for cerebral angiogram with tentative date on Sunday at [facility], cardiac catheterization department with no official time. NPO post midnight for possicle cerebral angiogram in am. Status: Acute
[2018-02-24] MEDS: POLYETHYLENE GLYCOL 3350 17 GM/Dose PACKET PO SCH (08:37)
--- NOTE | 2018-02-24 08:42 | CP.PCM.PN ---
Subjective - Date & Time of Evaluation Date of Evaluation: 02/24/18 Time of Evaluation: 08:40 - Subjective Subjective: Davis was seen and evaluated at bedside this AM, resting comfortably in bed. Reported last BM was 5 days ago. However, denies abdo pain. reports gas, and that his regular BM is every 2 days. Denies significant overnight events, CP/SOB /N/V. Reports mental clarity and ambulates without difficulty. Objective - Vital Signs/Intake and Output Vital Signs (last 24 hours): Temp Pulse Resp BP Pulse Ox 97.6 F 68 20 118/73 97 02/24/18 08:27 02/24/18 08:27 02/24/18 08:27 02/24/18 08:27 02/24/18 08:27 - Medications Medications: Current Medications Aspirin (Ecotrin) 81 mg PO DAILY [facility] Last Admin: 02/24/18 08:37 Dose: 81 mg Atorvastatin Calcium (Lipitor) 40 mg PO HS [facility] Last Admin: 02/23/18 21:23 Dose: 40 mg Clopidogrel Bisulfate (Plavix) 75 mg PO DAILY [facility] Last Admin: 02/24/18 08:38 Dose: 75 mg Cyanocobalamin (Vitamin B12 1000 Mcg Tab) 1,000 mcg PO DAILY [facility] Last Admin: 02/24/18 08:38 Dose: 1,000 mcg Dextrose (Dextrose 50% Inj) 0 ml IV STAT PRN; Protocol PRN Reason: Hypoglycemia Protocol Dextrose (Glutose 15) 0 gm PO ONCE PRN; Protocol PRN Reason: Hypoglycemia Protocol Diazepam (Valium) 2 mg PO Q8 [facility] Last Admin: 02/24/18 01:50 Dose: Not Given Docusate Sodium (Colace) 100 mg PO BID [facility] Last Admin: 02/24/18 08:37 Dose: 100 mg Enoxaparin Sodium (Lovenox) 40 mg SC DAILY [facility] PRN Reason: Protocol Last Admin: 02/23/18 13:29 Dose: 40 mg Glucagon (Glucagen Diagnostic Kit) 0 mg IM STAT PRN; Protocol PRN Reason: Hypoglycemia Protocol Insulin Human Lispro (Humalog) 0 units SC ACHS [facility] PRN Reason: Protocol Last Admin: 02/24/18 06:50 Dose: 2 units Metformin HCl (Glucophage) 1,000 mg PO BIDWM [facility] Last Admin: 02/23/18 09:11 Dose: 1,000 mg Polyethylene Glycol (Miralax) 17 gm PO DAILY [facility] Last Admin: 02/24/18 08:37 Dose: 17 gm Senna/Docusate Sodium (Senokot S 50 Mg-8.6 Mg) 1 tab PO HS [facility] Last Admin: 02/23/18 21:23 Dose: 1 tab - Labs Labs: 02/23/18 09:34 02/23/18 09:34 - Constitutional Appears: Well, No Acute Distress - Head Exam Head Exam: ATRAUMATIC - Eye Exam Eye Exam: EOMI - Neck Exam Neck Exam: Full ROM - Respiratory Exam Respiratory Exam: Clear to Ausculation Bilateral, NORMAL BREATHING PATTERN - Cardiovascular Exam Cardiovascular Exam: REGULAR RHYTHM, +S1, +S2 - GI/Abdominal Exam GI & Abdominal Exam: Soft, Normal Bowel Sounds. absent: Rigid, Tenderness - Extremities Exam Extremities Exam: absent: Calf Tenderness - Neurological Exam Neurological Exam: Alert, Awake, CN II-XII Intact, Oriented x3 - Psychiatric Exam Psychiatric exam: Normal Affect, Normal Mood Assessment and Plan - Assessment and Plan (Free Text) Plan: 62 year old male with history of NIDDM admitted for dizziness, unsteady gait, and likely vertebrobasilar artery insufficiency. 1. Vertebrobasilar Artery Insufficiency CT head revealed likely chronic lacunar right external capsule anteriorly. No intracranial hemorrhage or mass-effect. MRI: findings possibly reflect tiny acute infarction Neuro consult Dr. Amaro: 02/24/2018: Continue with medical, physical and occupational therapies; NPO after midnight for possible cerebral angiogram at [facility]. Neurointerventional consult - as per Dr. Amaro pt is to get angiogram at [facility] on Sunday 02/25 - 75 mg and aspirin 81 mg - PT/OT eval and treatment, including vestibular rehab; pt to get vestibular rehab as outpt - Valium 2 mg Q8 hrs for vertigo if needed - Atorvastatin 40 mg daily - Monitor BP - f/u CBC, CMP 2. Elevated Alk phos - 02/23/2018: 145 - f/u CMP and GGT 3. Non-insulin dependent type 2 diabetes mellitus Home dose metformin 750 mg; pt states he has taken on daily basis for several years. Diabetes suboptimally controlled: HbA1c 7.5. - 1,000 mg metformin BID - HELD in anticipation of angiogram on 02/25/2018 - Accuchecks - Insulin coverage scale and hypoglycemia protocol 4. Constipation - Miralax - Sennokot - Colace - Lactulose ordered am of 02/24/2018 - Offered enema, however, declined 5. Hyperlipidemia - Atorvastatin 40 mg daily 6. DVT prophylaxis - Lovenox: held in anticipation of angiogram on 02/25/2018 - Pt ambulating
[2018-02-24] MEDS ORDERED: Enoxaparin 40 mg Syringe SC ONE (10:24)
[2018-02-24] MEDS: Docusate-Senna 50 mg-8.6 mg Tab PO SCH (21:39)
[2018-02-25 06:05] LABS: HEMOGLOBIN 13.8 g/dL (12.0-18.0); MEAN CELL VOLUME 89.4 fl (80.0-94.0); MEAN CORPUSCULAR HEMOGLOBIN 29.9 pg (27.0-31.0); MEAN CORPUSCULAR HGB CONC 33.4 g/dL (33.0-37.0); RBC 4.62 Mil/uL (4.40-5.90); WHITE BLOOD COUNT 8.2 K/uL (4.8-10.8)
[2018-02-25 06:19] LABS: ALB/GLOB RATIO 1.1 (1.0-2.1); ALBUMIN 3.8 g/dL (3.5-5.0); ALT/SGPT 28 U/L (21-72); AST/SGOT 24 U/L (17-59); BLOOD UREA NITROGEN 22 mg/dl (9-20); CALCIUM 10.3 mg/dL (8.4-10.2); GFR AFRICAN-AMERICAN > 60; GFR NON-AFRICAN AMERICAN > 60
[2018-02-25] MEDS: Insulin Lispro (humaLOG) 100 Units/ml Inj SC SCH ×4 (06:29→21:28)
[2018-02-25 08:52] LABS: INR 1.1 (0.9-1.2); PARTIAL THROMBOPLASTIN TIME 32.1 Seconds (25.6-37.1); PROTHROMBIN TIME 12.1 Seconds (9.8-13.1)
--- NOTE | 2018-02-25 09:13 | CP.PCM.PN ---
Subjective - Date & Time of Evaluation Date of Evaluation: 02/25/18 Time of Evaluation: 09:13 - Subjective Subjective: Mr. eLe was seen and examined at the bedside. He is alert, oriented . He denies any headache, blurred vision, diplopia, dizziness, nausea, or vomiting. He He is able to follow all simple commands. He further claims of ambulating with steady gait. Patient is aware of his procedure today.There was no untoward events overnight. Objective - Vital Signs/Intake and Output Vital Signs (last 24 hours): Temp Pulse Resp BP Pulse Ox 98.1 F 69 16 112/68 98 02/25/18 08:46 02/25/18 08:46 02/25/18 08:46 02/25/18 08:46 02/25/18 08:46 - Medications Medications: Current Medications Aspirin (Ecotrin) 81 mg PO DAILY [facility] Last Admin: 02/24/18 08:37 Dose: 81 mg Atorvastatin Calcium (Lipitor) 40 mg PO HS [facility] Last Admin: 02/24/18 21:39 Dose: 40 mg Clopidogrel Bisulfate (Plavix) 75 mg PO DAILY [facility] Last Admin: 02/24/18 08:38 Dose: 75 mg Cyanocobalamin (Vitamin B12 1000 Mcg Tab) 1,000 mcg PO DAILY [facility] Last Admin: 02/24/18 08:38 Dose: 1,000 mcg Dextrose (Dextrose 50% Inj) 0 ml IV STAT PRN; Protocol PRN Reason: Hypoglycemia Protocol Dextrose (Glutose 15) 0 gm PO ONCE PRN; Protocol PRN Reason: Hypoglycemia Protocol Diazepam (Valium) 2 mg PO Q8H [facility] Last Admin: 02/25/18 05:27 Dose: Not Given Docusate Sodium (Colace) 100 mg PO BID [facility] Last Admin: 02/24/18 17:31 Dose: 100 mg Glucagon (Glucagen Diagnostic Kit) 0 mg IM STAT PRN; Protocol PRN Reason: Hypoglycemia Protocol Insulin Human Lispro (Humalog) 0 units SC ACHS [facility] PRN Reason: Protocol Last Admin: 02/25/18 06:29 Dose: Not Given Metformin HCl (Glucophage) 1,000 mg PO BIDWM [facility] Last Admin: 02/23/18 09:11 Dose: 1,000 mg Polyethylene Glycol (Miralax) 17 gm PO DAILY [facility] Last Admin: 02/24/18 08:37 Dose: 17 gm Senna/Docusate Sodium (Senokot S 50 Mg-8.6 Mg) 1 tab PO HS [facility] Last Admin: 02/24/18 21:39 Dose: 1 tab - Labs Labs: 02/25/18 04:20 02/25/18 04:20 PT 12.1 Seconds (9.8-13.1) 02/25/18 08:00 INR 1.1 (0.9-1.2) 02/25/18 08:00 APTT 32.1 Seconds (25.6-37.1) 02/25/18 08:00 - Constitutional Appears: No Acute Distress - Head Exam Head Exam: NORMAL INSPECTION - Neurological Exam Neurological Exam: Alert, Oriented x3 Neuro motor strength exam: Left Upper Extremity: 5, Right Upper Extremity: 5, Left Lower Extremity: 5, Right Lower Extremity: 5 Additional comments: Neurological unchanged from previous examination. Assessment and Plan (1) Vertebrobasilar artery insufficiency Assessment & Plan: Case discussed with Dr. green, continue all current medical, physical, and occupational therapies. The patient is for cerebral angiogram today at [facility].If the angiogram is normal, may discharge patient after 24 hours post angiogram. Status: Acute
--- NOTE | 2018-02-25 09:30 | CP.PCM.PN ---
Subjective - Date & Time of Evaluation Date of Evaluation: 02/25/18 Time of Evaluation: 09:10 - Subjective Subjective: Davis was seen and examined at bedside this morning. Reports a large bowel movement last night with relief. Denies significant overnight events, CP/SOB/N/ V. Denies abdominal pain. Reports ambulating without difficulty. Reports mental clarity. Denies confusion. Aware of today's cerebral angiogram at [facility]. Objective - Vital Signs/Intake and Output Vital Signs (last 24 hours): Temp Pulse Resp BP Pulse Ox 98.1 F 69 16 112/68 98 02/25/18 08:46 02/25/18 08:46 02/25/18 08:46 02/25/18 08:46 02/25/18 08:46 - Medications Medications: Current Medications Aspirin (Ecotrin) 81 mg PO DAILY [facility] Last Admin: 02/24/18 08:37 Dose: 81 mg Atorvastatin Calcium (Lipitor) 40 mg PO HS [facility] Last Admin: 02/24/18 21:39 Dose: 40 mg Clopidogrel Bisulfate (Plavix) 75 mg PO DAILY [facility] Last Admin: 02/24/18 08:38 Dose: 75 mg Cyanocobalamin (Vitamin B12 1000 Mcg Tab) 1,000 mcg PO DAILY [facility] Last Admin: 02/24/18 08:38 Dose: 1,000 mcg Dextrose (Dextrose 50% Inj) 0 ml IV STAT PRN; Protocol PRN Reason: Hypoglycemia Protocol Dextrose (Glutose 15) 0 gm PO ONCE PRN; Protocol PRN Reason: Hypoglycemia Protocol Diazepam (Valium) 2 mg PO Q8H [facility] Last Admin: 02/25/18 05:27 Dose: Not Given Docusate Sodium (Colace) 100 mg PO BID [facility] Last Admin: 02/24/18 17:31 Dose: 100 mg Glucagon (Glucagen Diagnostic Kit) 0 mg IM STAT PRN; Protocol PRN Reason: Hypoglycemia Protocol Insulin Human Lispro (Humalog) 0 units SC ACHS [facility] PRN Reason: Protocol Last Admin: 02/25/18 06:29 Dose: Not Given Metformin HCl (Glucophage) 1,000 mg PO BIDWM [facility] Last Admin: 02/23/18 09:11 Dose: 1,000 mg Polyethylene Glycol (Miralax) 17 gm PO DAILY [facility] Last Admin: 02/24/18 08:37 Dose: 17 gm Senna/Docusate Sodium (Senokot S 50 Mg-8.6 Mg) 1 tab PO HS [facility] Last Admin: 02/24/18 21:39 Dose: 1 tab - Labs Labs: 02/25/18 04:20 02/25/18 04:20 PT 12.1 Seconds (9.8-13.1) 02/25/18 08:00 INR 1.1 (0.9-1.2) 02/25/18 08:00 APTT 32.1 Seconds (25.6-37.1) 02/25/18 08:00 - Constitutional Appears: Well, No Acute Distress - Head Exam Head Exam: ATRAUMATIC - Eye Exam Eye Exam: EOMI - ENT Exam ENT Exam: Mucous Membranes Moist - Neck Exam Neck Exam: Full ROM - Respiratory Exam Respiratory Exam: Clear to Ausculation Bilateral. absent: Wheezes - Cardiovascular Exam Cardiovascular Exam: REGULAR RHYTHM, +S1, +S2 - GI/Abdominal Exam GI & Abdominal Exam: Soft, Normal Bowel Sounds. absent: Tenderness - Extremities Exam Extremities Exam: Full ROM. absent: Calf Tenderness, Pedal Edema, Tenderness - Neurological Exam Neurological Exam: Alert, Awake, CN II-XII Intact, Oriented x3 - Psychiatric Exam Psychiatric exam: Normal Affect, Normal Mood Assessment and Plan - Assessment and Plan (Free Text) Plan: 62 year old male with history of NIDDM admitted for dizziness, unsteady gait, and likely vertebrobasilar artery insufficiency. 1. Vertebrobasilar Artery Insufficiency CT head revealed likely chronic lacunar right external capsule anteriorly. No intracranial hemorrhage or mass-effect. MRI: findings possibly reflect tiny acute infarction Neuro consult Dr. Aleman: 02/24/2018: Pt is scheduled for cerebral angiogram at [facility]; transport at 10:30; if exam is normal, pt may be d/c 24 hours after. Neurointerventional consult - as per Dr. Amaro; Dr. Boateng: pending cerebral angiogram for either: stent, cerebral bypass or medical mgmt - aspirin, plavix and lovenox: held for procedure - NPO last midnight - PT/OT eval and treatment, including vestibular rehab; pt to get vestibular rehab as outpt - Valium 2 mg Q8 hrs for vertigo PRN - Atorvastatin 40 mg daily - Monitor BP 2. Elevated Alk phos - 02/23/2018: 145 - f/u CMP and GGT: Alk phos trend down to 133; GGT: pending 3. Non-insulin dependent type 2 diabetes mellitus Home dose metformin 750 mg; pt states he has taken on daily basis for several years. Diabetes suboptimally controlled: HbA1c 7.5. - 1,000 mg metformin BID - HELD in anticipation of angiogram on 02/25/2018 - Accuchecks - Insulin coverage scale and hypoglycemia protocol 4. Constipation - Resolved with BM on 02/24/2018 5. Hyperlipidemia - Atorvastatin 40 mg daily 6. DVT prophylaxis - Lovenox: held in anticipation of angiogram on 02/25/2018 - Pt ambulating Pt has f/u appt with Dr. Vieira 03/07/2018 at 03:00 PM
[2018-02-25] MEDS: POLYETHYLENE GLYCOL 3350 17 GM/Dose PACKET PO SCH (09:35)
[2018-02-25 10:46] LABS: GAMMA GLUTAMYL TRANSPEPTIDASE 97 U/L (8-78)
--- NOTE | 2018-02-25 10:53 | CP.PCM.CON ---
History of Present Illness - History of Present Illness History of Present Illness: The patient is a 62 year old male with a PMH signifigant for DM. He presented with symptoms of dizziness, N/V and headache. CTA demonstrates tight stenosis of the left vertebral artery with an atretic right vertebral artery. The patient's symptoms have persisted with noted nystagmus , he experiences reccurnt bouts of what I believe to be VB insuficiency when he lifts his head and gets up despite several days of DAPT. Diagnsotic cerebral angiography has been requested by Dr. Amaro to better define his cerebral circulation and to determine if this patient would be a candidate fort extra or intracranial stenting, given his worrisome syndrome that is still refractory to medical management Past Patient History - Past Medical History & Family History Past Medical History?: Yes - Past Social History Smoking Status: Light Smoker < 10 Cigarettes Daily Occupation: works in [employer] Alcohol: None Drugs: Denies Home Situation {Lives}: Alone - CARDIAC Hx Cardiac Disorders: No - PULMONARY Hx Respiratory Disorders: No - NEUROLOGICAL Hx Neurological Disorder: No Hx Dizziness: Yes - HEENT Hx HEENT Problems: No - RENAL Hx Chronic Kidney Disease: No - ENDOCRINE/METABOLIC Hx Diabetes Mellitus Type 2: Yes - HEMATOLOGICAL/ONCOLOGICAL Hx Blood Disorders: No Hx AIDS: No Hx Human Immunodeficiency Virus (HIV): No - INTEGUMENTARY Hx Dermatological Problems: No - MUSCULOSKELETAL/RHEUMATOLOGICAL Hx Musculoskeletal Disorders: No Hx Falls: No - GASTROINTESTINAL Hx Gastrointestinal Disorders: No - GENITOURINARY/GYNECOLOGICAL Hx Genitourinary Disorders: No - PSYCHIATRIC Hx Substance Use: No - SURGICAL HISTORY Hx Surgeries: Yes (left hand, right ankle) - ANESTHESIA Hx Anesthesia: Yes Hx Anesthesia Reactions: No Hx Malignant Hyperthermia: No Has any member of the family had a problem w/ anesthesia?: No Meds Allergies/Adverse Reactions: Allergies Allergy/AdvReac Type Severity Reaction Status Date / Time No Known Allergies Allergy Verified 02/19/18 15:20 - Medications Medications: Current Medications Aspirin (Ecotrin) 81 mg PO DAILY [facility] Last Admin: 02/24/18 08:37 Dose: 81 mg Atorvastatin Calcium (Lipitor) 40 mg PO HS [facility] Last Admin: 02/24/18 21:39 Dose: 40 mg Clopidogrel Bisulfate (Plavix) 75 mg PO DAILY [facility] Last Admin: 02/24/18 08:38 Dose: 75 mg Cyanocobalamin (Vitamin B12 1000 Mcg Tab) 1,000 mcg PO DAILY [facility] Last Admin: 02/25/18 09:35 Dose: Not Given Dextrose (Dextrose 50% Inj) 0 ml IV STAT PRN; Protocol PRN Reason: Hypoglycemia Protocol Dextrose (Glutose 15) 0 gm PO ONCE PRN; Protocol PRN Reason: Hypoglycemia Protocol Diazepam (Valium) 2 mg PO Q8H [facility] Last Admin: 02/25/18 05:27 Dose: Not Given Docusate Sodium (Colace) 100 mg PO BID [facility] Last Admin: 02/25/18 09:34 Dose: Not Given Enoxaparin Sodium (Lovenox) 40 mg SC DAILY [facility] PRN Reason: Protocol Glucagon (Glucagen Diagnostic Kit) 0 mg IM STAT PRN; Protocol PRN Reason: Hypoglycemia Protocol Insulin Human Lispro (Humalog) 0 units SC ACHS [facility] PRN Reason: Protocol Last Admin: 02/25/18 06:29 Dose: Not Given Metformin HCl (Glucophage) 1,000 mg PO BIDWM [facility] Last Admin: 02/23/18 09:11 Dose: 1,000 mg Polyethylene Glycol (Miralax) 17 gm PO DAILY [facility] Last Admin: 02/25/18 09:35 Dose: Not Given Senna/Docusate Sodium (Senokot S 50 Mg-8.6 Mg) 1 tab PO HS [facility] Last Admin: 02/24/18 21:39 Dose: 1 tab Physical Exam - Additional Findings Additional findings: In bed, comfortable AOx3, PERRL No nystagmus while lying flat When head of bed at 30 degrees nystagmus on right and left end gaze that does not extinguish Moves all extremities No drift FNF, slow but without clear deficit bilaterally. Gait deffered. Results - Vital Signs Recent Vital Signs: Last Vital Signs Temp 98.1 F 02/25/18 08:46 Pulse 69 02/25/18 08:46 Resp 16 02/25/18 08:46 BP 112/68 02/25/18 08:46 Pulse Ox 98 02/25/18 08:46 - Labs Result Diagrams: 02/25/18 04:20 02/25/18 04:20 Labs: Laboratory Results - last 24 hr 02/24/18 02/24/18 02/24/18 11:12 17:27 21:17 WBC RBC Hgb Hct MCV MCH MCHC RDW Plt Count PT INR APTT Sodium Potassium Chloride Carbon Dioxide Anion Gap BUN Creatinine Est GFR ( Amer) Est GFR (Non-Af Amer) POC Glucose (mg/dL) 149 H 97 205 H Random Glucose Calcium Total Bilirubin AST ALT Alkaline Phosphatase Total Protein Albumin Globulin Albumin/Globulin Ratio 02/25/18 02/25/18 02/25/18 04:20 04:20 08:00 WBC 8.2 RBC 4.62 Hgb 13.8 Hct 41.3 MCV 89.4 MCH 29.9 MCHC 33.4 RDW 14.0 Plt Count 204 PT 12.1 INR 1.1 APTT 32.1 Sodium 142 Potassium 4.1 Chloride 105 Carbon Dioxide 23 Anion Gap 18 BUN 22 H Creatinine 0.8 Est GFR ( Amer) > 60 Est GFR (Non-Af Amer) > 60 POC Glucose (mg/dL) Random Glucose 145 H Calcium 10.3 H Total Bilirubin 0.5 AST 24 ALT 28 Alkaline Phosphatase 133 H Total Protein 7.4 Albumin 3.8 Globulin 3.6 Albumin/Globulin Ratio 1.1 Assessment & Plan - Assessment and Plan (Free Text) Assessment: 62 year old male with symptoms highly suggestive of vertebro-basilar insufficiency. Now refractory to several days of DAPT Plan: 1.Diagnostic cerebral aniography to asses his cerebral vasculature. 2.Labs revieweds 3.Based on findings will decide on possible stent placement, vs. referral for cerebral Bypass surgery vs. medical mangiest.
--- NOTE | 2018-02-25 11:00 | PCM.IRPREO ---
Pre Procedure Note - History Proposed Procedure: Diagnstic cerebral angiogram - Pre Procedure Were any radiologic studies performed in the last 12 months: Yes List of radiologic studies performed: CTA, CT, MR Was medical management performed in the past 24 months: Yes (DAPT) List of medical management performed: DAPT Clinical indication for the procedure: High grade Vertbro-basilar stenosis seen on non-invasive imaging, the patient also has VB insufficiency symptoms now, despite being on DAPT. The patient is potentially at risk for a Posterior fossa infarction which carries a very poor natural history. Have risks and benefits been explained to the patient: Yes Risks and benefits been explained to the patient: allergic reaction, contrast reaction, renal injury, bleeding, nerve damaage, local groin site complications , stroke with severe resultant neurological deficits. Have alternatives to surgery explained to the patient as applicable: Yes (non- invasive imaging) - Allergies Allergies: Allergies No Known Allergies Allergy (Verified 02/19/18 15:20) - Current Medications Current Medications: please see electronic record, which I have reviewed. He is on DAPT - Physical Exam Vital Signs: Vital Signs 02/25/18 02/25/18 02/25/18 05:00 08:46 09:00 Temperature 97.6 F 98.1 F 98.1 F Pulse Rate 65 69 69 Respiratory 16 16 16 Rate Blood Pressure 119/73 112/68 112/68 O2 Sat by Pulse 96 98 98 Oximetry Neuro: Other (PERRL, +left and right end gaze nystagmus without extinction. Aox3 , FNF normal but slow, no drift, sensation intact) - Impression Impression: Symptoms of VB insuffciency Pt. Evaluated Today:Candidate for Anesthesia & Procedure: Will use local anasthesia. - Date & Time Date: 02/25/18 Time: 10:59
--- NOTE | 2018-02-25 12:49 | PCM.OP ---
Operative Report - Operative Report Date of Surgery/Procedure: 02/25/18 Time of Surgery/Procedure: 12:44 Surgeon: Dr. 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 No evidence of VB stenosis Indication for Surgery: Brainstem syndrome, and new aneurysm seen on CTA Operative Findings: 3.7 x 3.1 mm broad based right supraclinoid ICa aneurysm. No VB stenosis Procedure/Operation Description: Diagnostic cerbral angiogram Estimated Blood Loss: minimal Blood Replaced: none Sponge/Instrument Count: N/A Drains: N/A Complications: None. Neuro intact immediatly post procedure Specimen: none Discharge & Condition: Needs to be flat for 3.5 hours, no moving right leg. right groin and distal pulse checks q15 mins x4 the q 30 mins x4 then q1 hr x2 then as per unit protocl. Call MD stat if bleeding or lost pulses.
[2018-02-25] MEDS: Docusate-Senna 50 mg-8.6 mg Tab PO SCH (21:27)
[2018-02-26 06:12] LABS: BASO % 0.4 % (0.0-2.0); EOS # 0.2 K/uL (0.0-0.7); EOS % 1.5 % (0.0-4.0); LYMPH % 29.7 % (20.0-40.0); MEAN CELL VOLUME 87.7 fl (80.0-94.0); MEAN CORPUSCULAR HEMOGLOBIN 29.9 pg (27.0-31.0); MEAN CORPUSCULAR HGB CONC 34.1 g/dL (33.0-37.0); MONO # 0.8 K/uL (0.0-0.8); MONO % 8.1 % (0.0-10.0); NEUT # 6.2 K/uL (1.8-7.0); NEUT % 60.3 % (50.0-75.0); NRBC % 0.1 % (0.0-0.0); RBC 4.67 Mil/uL (4.40-5.90); RED CELL DISTRIBUTION WIDTH 14.2 % (11.5-14.5); WHITE BLOOD COUNT 10.3 K/uL (4.8-10.8)
[2018-02-26 06:39] LABS: ALBUMIN 3.8 g/dL (3.5-5.0); ALT/SGPT 43 U/L (21-72); AST/SGOT 31 U/L (17-59); BLOOD UREA NITROGEN 18 mg/dl (9-20); CALCIUM 10.4 mg/dL (8.4-10.2); GFR AFRICAN-AMERICAN > 60; GFR NON-AFRICAN AMERICAN > 60
[2018-02-26] MEDS: Insulin Lispro (humaLOG) 100 Units/ml Inj SC SCH ×2 (07:40→13:38)
[2018-02-26] MEDS ORDERED: Enoxaparin 40 mg Syringe SC SCH (09:00)
--- NOTE | 2018-02-26 09:30 | CP.PCM.DIS ---
Provider - Provider Date of Admission: 02/20/18 13:46 Attending physician: Ngozi Parkinson MD Time Spent in preparation of Discharge (in minutes): 20 Diagnosis - Discharge Diagnosis (1) Cerebral aneurysm Status: Acute Hospital Course - Lab Results Lab Results: Most Recent Lab Values WBC 10.3 K/uL (4.8-10.8) 02/26/18 04:20 RBC 4.67 Mil/uL (4.40-5.90) 02/26/18 04:20 Hgb 14.0 g/dL (12.0-18.0) 02/26/18 04:20 Hct 41.0 % (35.0-51.0) 02/26/18 04:20 MCV 87.7 fl (80.0-94.0) 02/26/18 04:20 MCH 29.9 pg (27.0-31.0) 02/26/18 04:20 MCHC 34.1 g/dL (33.0-37.0) 02/26/18 04:20 RDW 14.2 % (11.5-14.5) 02/26/18 04:20 Plt Count 213 K/uL (130-400) 02/26/18 04:20 MPV 10.0 fl (7.2-11.7) 02/26/18 04:20 Neut % (Auto) 60.3 % (50.0-75.0) 02/26/18 04:20 Lymph % (Auto) 29.7 % (20.0-40.0) 02/26/18 04:20 Mcminn % (Auto) 8.1 % (0.0-10.0) 02/26/18 04:20 Eos % (Auto) 1.5 % (0.0-4.0) 02/26/18 04:20 Baso % (Auto) 0.4 % (0.0-2.0) 02/26/18 04:20 Neut # (Auto) 6.2 K/uL (1.8-7.0) 02/26/18 04:20 Lymph # (Auto) 3.0 K/uL (1.0-4.3) 02/26/18 04:20 Mcminn # (Auto) 0.8 K/uL (0.0-0.8) 02/26/18 04:20 Eos # (Auto) 0.2 K/uL (0.0-0.7) 02/26/18 04:20 Baso # (Auto) 0.0 K/uL (0.0-0.2) 02/26/18 04:20 PT 12.1 Seconds (9.8-13.1) 02/25/18 08:00 INR 1.1 (0.9-1.2) 02/25/18 08:00 APTT 32.1 Seconds (25.6-37.1) 02/25/18 08:00 Sodium 143 mmol/l (132-148) 02/26/18 04:20 Potassium 4.1 MMOL/L (3.6-5.0) 02/26/18 04:20 Chloride 105 mmol/L (98-107) 02/26/18 04:20 Carbon Dioxide 24 mmol/L (22-30) 02/26/18 04:20 Anion Gap 18 (10-20) 02/26/18 04:20 BUN 18 mg/dl (9-20) 02/26/18 04:20 Creatinine 0.9 mg/dl (0.8-1.5) 02/26/18 04:20 Est GFR ( Amer) > 60 02/26/18 04:20 Est GFR (Non-Af Amer) > 60 02/26/18 04:20 POC Glucose (mg/dL) 115 mg/dL (65-110) H 02/26/18 05:36 Random Glucose 108 mg/dL (75-110) 02/26/18 04:20 Hemoglobin A1c 7.5 % (4.2-6.5) H 02/20/18 04:20 Calcium 10.4 mg/dL (8.4-10.2) H 02/26/18 04:20 Phosphorus 2.9 mg/dl (2.5-4.5) 02/19/18 16:01 Magnesium 2.2 MG/DL (1.6-2.3) 02/19/18 16:01 Total Bilirubin 0.6 mg/dl (0.2-1.3) 02/26/18 04:20 GGT 97 U/L (8-78) H 02/25/18 04:20 AST 31 U/L (17-59) 02/26/18 04:20 ALT 43 U/L (21-72) 02/26/18 04:20 Alkaline Phosphatase 149 U/L (38-126) H 02/26/18 04:20 Total Protein 7.6 G/DL (6.3-8.2) 02/26/18 04:20 Albumin 3.8 g/dL (3.5-5.0) 02/26/18 04:20 Globulin 3.8 gm/dL (2.2-3.9) 02/26/18 04:20 Albumin/Globulin Ratio 1.0 (1.0-2.1) 02/26/18 04:20 Triglycerides 270 mg/DL (0-149) H 02/20/18 04:20 Cholesterol 241 mg/dL (0-199) H 02/20/18 04:20 LDL Cholesterol Direct 151 mg/dL (0-129) H 02/20/18 04:20 HDL Cholesterol 25 MG/DL (30-70) L 02/20/18 04:20 Lipase 77 U/L (23-300) 02/19/18 16:01 Vitamin B12 175 pg/mL (239-931) L 02/20/18 04:20 Folate 10.7 ng/mL 02/20/18 04:20 TSH 3rd Generation 1.61 mIU/ML (0.46-4.68) 02/20/18 04:20 Urine Color Straw (YELLOW) 02/19/18 21:13 Urine Clarity Clear (Clear) 02/19/18 21:13 Urine pH 6.0 (5.0-8.0) 02/19/18 21:13 Ur Specific [place] 1.055 (1.003-1.030) H 02/19/18 21:13 Urine Protein Negative mg/dL (NEGATIVE) 02/19/18 21:13 Urine Glucose (UA) Neg mg/dL (Normal) 02/19/18 21:13 Urine Ketones Negative mg/dL (NEGATIVE) 02/19/18 21:13 Urine Blood Negative (NEGATIVE) 02/19/18 21:13 Urine Nitrate Negative (NEGATIVE) 02/19/18 21:13 Urine Bilirubin Negative (NEGATIVE) 02/19/18 21:13 Urine Urobilinogen 0.2-1.0 mg/dL (0.2-1.0) 03/27/18 21:13 Ur Leukocyte Esterase Neg Danny/uL (Negative) 02/19/18 21:13 Urine RBC (Auto) 2 /hpf (0-3) 02/19/18 21:13 Urine Microscopic WBC < 1 /hpf (0-5) 02/19/18 21:13 Ur Squamous Epith Cells < 1 /hpf (0-5) 02/19/18 21:13 Alcohol, Quantitative < 10 mg/dl (0-10) 02/19/18 16:01 - Hospital Course Hospital Course: 62 year old male with history of NIDDM admitted for dizziness, unsteady gait. CT and MRI with abnormal findings. Neurology: Dr. Amaro and Dr. Aleman recommended Neurointerventionalist with cerebral angiogram on 02/25/2018 resulted in findings of cerebral aneurysm. Continued on aspirin, discontinued plavix and lovenox. Will follow up at [facility] with Dr. Vieira and with Neurology: Dr. Amaro as well as neurointerventionalist. Elevated Alkphos:149 and ggt: 97, Ca: 10.4. NOTE : ON FUTURE ADMISSIONS, PLEASE NO ANTICOAGULANTS Discharge Exam - Head Exam Head Exam: ATRAUMATIC - Eye Exam Eye Exam: EOMI - Neck Exam Neck exam: Full Rom - Respiratory Exam Respiratory Exam: Clear to PA & Lateral, NORMAL BREATHING PATTERN. absent: Wheezes - Cardiovascular Exam Cardiovascular Exam: REGULAR RHYTHM, +S1, +S2 - GI/Abdominal Exam GI & Abdominal Exam: Normal Bowel Sounds, Soft. absent: Tenderness - Neurological Exam Neurological exam: Alert, CN II-XII Intact, Oriented x3 - Psychiatric Exam Psychiatric exam: Normal Affect, Normal Mood Discharge Plan - Discharge Medications Prescriptions: Aspirin [Ecotrin] 81 mg PO DAILY 30 Days #30 tabec Atorvastatin [Lipitor] 40 mg PO HS 30 Days tab MetFORMIN [glucoPHAGE] 1,000 mg PO BIDWM 30 Days tab - Follow Up Plan Condition: STABLE Disposition: HOME/ ROUTINE Patient education suggested?: Yes Instructions: Angiography, Brain Aneurysm Additional Instructions: 62 year old male with history of NIDDM admitted for dizziness, unsteady gait. CT and MRI with abnormal findings. Neurology: Dr. Amaro and Dr. Aleman recommended Neurointerventionalist with cerebral angiogram on 02/25/2018 resulted in findings of cerebral aneurysm. Continued on aspirin, discontinued plavix and lovenox. Will follow up at [facility] with Dr. Vieira and with Neurology: Dr. Amaro as well as neurointerventionalist. Elevated Alkphos:149 and ggt: 97. Referrals: [facility] [Provider Group] - 03/07/18 3:00 pm Bc Amaro MD [Medical Doctor] - (OFFICE ADDRESS: [address] [place] [address] [phone] )
[2018-02-26] MEDS: POLYETHYLENE GLYCOL 3350 17 GM/Dose PACKET PO SCH (13:41)
[2018-02-26 15:46] VITALS: BP 133/80; PULSE 70; RESP 17; TEMP 97.6; O2SAT 98
== END 2018-02-26 16:00 | disposition home or self-care (01) | DRG 35 ==
LOC: H.ER 14:31 → H.ERHOLD 18:41 → H.TEL 21:22 → OBSVTOIN 02-20 13:46 → H.TEL 02-24 11:22
PROVIDERS: ADMIT Family Medicine Geriatric Medicine; ATTEND Family Medicine Geriatric Medicine
PROC: B312YZZ Fluoroscopy of Left Subclavian Artery using Other Contrast (ICD-10-PCS; principal; 2018-02-25)
PROC: B313YZZ Fluoroscopy of Right Common Carotid Artery using Other Contrast (ICD-10-PCS; 2018-02-25)
DX: I67.1 Cerebral aneurysm, nonruptured (principal); G45.0 Vertebro-basilar artery syndrome; I10 Essential (primary) hypertension; E11.9 Type 2 diabetes mellitus without complications; F17.210 Nicotine dependence, cigarettes, uncomplicated; H55.00 Unspecified nystagmus; K59.09 Other constipation; Z79.84 Long term (current) use of oral hypoglycemic drugs